=== PATIENT | male | born 1995 | race African-American/Black ===

== ENCOUNTER 2020-08-18 10:45 | Emergency (ER) | payer OTHER ==
[~2020-08-18] VITALS: Ht 172.7 cm; Wt 73.5 kg
[2020-08-18 11:02] VITALS: Ht 172.7 cm; Wt 73.5 kg
[2020-08-18] MEDS ORDERED: TYLENOL325 M1 PO (11:57)
[2020-08-18 12:05] VITALS: BP 128/76
== END 2020-08-18 12:05 | disposition home or self-care (01) ==
LOC: ED 10:45
DX: R07.89 Other chest pain (principal)